=== PATIENT | male | born 1995 | race Caucasian/White ===

== ENCOUNTER 2018-04-20 16:17 | Emergency (ER) | payer SELFPAY ==
[~2018-04-20] VITALS: Ht 165.1 cm; Wt 57.6 kg
[2018-04-20 16:43] VITALS: Ht 165.1 cm; Wt 57.6 kg
[2018-04-20 20:14] VITALS: BP 111/65
== END 2018-04-20 20:10 | disposition home or self-care (01) ==
LOC: ED 16:17
DX: S29.012A Strain of muscle and tendon of back wall of thorax, initial encounter (principal); V43.52XA Car driver injured in collision with other type car in traffic accident, initial encounter; Y92.411 Interstate highway as the place of occurrence of the external cause